=== PATIENT | female | born 1990 | race American Indian/Alaskan Native ===

== ENCOUNTER 2019-09-15 15:57 | Emergency (ER) | payer OTHER ==
--- NOTE | 2019-09-15 17:14 | Emergency Department Report ---
Blank Doc - Documentation Documentation: 29-year-old female that presents with right lower abdominal pain with n/v. This initial assessment/diagnostic orders/clinical plan/treatment(s) is/are subject to change based on patient's health status, clinical progression and re- assessment by fellow clinical providers in the ED. Further treatment and workup at subsequent clinical providers discretion. Patient/guardians urged not to elope from the ED as their condition may be serious if not clinically assessed and managed. Initial orders include: 1- Patient sent to [facility] for further evaluation and treatment 2- UA 3- labs
[2019-09-15 18:39] LABS: Basophils # (Auto) 0.1 K/mm3 (0.0-0.1); Basophils % (Auto) 0.5 % (0.0-1.8); Eosinophils # (Auto) 0.3 K/mm3 (0.0-0.4); Eosinophils % (Auto) 3.2 % (0.0-4.3); Hematocrit 38.7 % (30.3-42.9); Hemoglobin 12.7 gm/dl (10.1-14.3); Lymphocytes # (Auto) 2.4 K/mm3 (1.2-5.4); Mean Corpuscular HGB Conc 33 % (30-34); Mean Corpuscular Volume 83 fl (79-97); Monocytes # (Auto) 0.8 K/mm3 (0.0-0.8); Monocytes % (Auto) 8.1 % (0.0-7.3); Platelet Count 397 K/mm3 (140-440); Red Blood Count 4.65 M/mm3 (3.65-5.03); Red Cell Distribution Width 15.8 % (13.2-15.2)
[2019-09-15 18:59] LABS: Alanine Aminotransferase 13 units/L (7-56); Albumin 4.3 g/dL (3.9-5); BUN/Creatinine Ratio 16; Blood Urea Nitrogen 11 mg/dL (7-17); Calcium 9.1 mg/dL (8.4-10.2); Hemolysis Index 2
[2019-09-15] MEDS ORDERED: MORPHINE IV ONE (21:12)
[2019-09-15] MEDS ORDERED: ZOFRAN IV ONE (21:12)
[2019-09-15] MEDS ORDERED: NACL 0.9% 1000 ML 1,000 ML IV ONE ×2 (21:12→23:05)
[2019-09-15 21:14] LABS: Bilirubin,Urine NEG (Negative); Blood,Urine NEG (Negative); Color,Urine Straw (Yellow); Mucus,Urine FEW /HPF; Protein,Urine <15 mg/dL mg/dL (Negative); Urobilinogen,Urine < 2.0 mg/dL (<2.0)
[2019-09-15] MEDS ORDERED: TYLENOL PO ONE (21:14)
--- NOTE | 2019-09-15 21:14 | Emergency Department Report ---
<MEGHANN NANCE - Last Filed: 09/15/19 23:13> ED Abdominal Pain HPI - General Chief Complaint: Abdominal Pain Stated Complaint: LOWER ABD PAIN Time Seen by Provider: 09/15/19 17:13 Source: patient, RN notes reviewed Mode of arrival: Ambulatory Limitations: No Limitations - History of Present Illness Initial Comments: This is a pleasant 29-year-old female who is not known to this provider previously. 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 She believes that she has a past history of cholecystectomy. She presents to the ER with a complaint of sharp right lower quadrant pain. This pain has been present for the past few hours to 1 day. The pain is in the right lower quadrant. It increases with palpation and decreases with rest. There is positive nausea. There is no vomiting. There is no dysuria. There is no vaginal discharge. The patient reports that her Crohn's disease is currently in remission. She reports that she is not taking any immunomodulating therapy at this time. She reports the pain does not feel like her typical Crohn's pain. MD Complaint: abdominal pain -: Gradual Location: RLQ Severity scale (0 -10): 6 Quality: aching Consistency: other Improves With: other Worsens With: other - Related Data Previous Rx's Medication Instructions Recorded Last Taken Type Acetaminophen [Non-Aspirin Extra 500 mg PO Q6HR PRN #30 tablet 09/15/19 Unknown Rx Strength] Ibuprofen [Motrin] 600 mg PO Q8H PRN #30 tablet 09/15/19 Unknown Rx Metoclopramide [Reglan] 10 mg PO QID PRN #30 tablet 09/15/19 Unknown Rx Allergies Allergy/AdvReac Type Severity Reaction Status Date / Time No Known Allergies Allergy Verified 09/15/19 19:38 ED Review of Systems Constitutional: denies: malaise, weakness Eyes: denies: eye discharge ENT: denies: epistaxis Respiratory: denies: cough Cardiovascular: denies: chest pain Genitourinary: denies: dysuria Musculoskeletal: denies: myalgia Skin: denies: lesions Neurological: denies: weakness Hematological/Lymphatic: denies: easy bleeding ED Past Medical Hx - Past Medical History Previous Medical History?: Yes Additional medical history: Chron's - Surgical History Past Surgical History?: Yes Additional Surgical History: Partial colectomy from Chron's - Social History Smoking Status: Current Every Day Smoker Substance Use Type: Alcohol - Medications Home Medications: Home Medications Medication Instructions Recorded Confirmed Last Taken Type Acetaminophen [Non-Aspirin Extra 500 mg PO Q6HR PRN #30 tablet 09/15/19 Unknown Rx Strength] Ibuprofen [Motrin] 600 mg PO Q8H PRN #30 tablet 09/15/19 Unknown Rx Metoclopramide [Reglan] 10 mg PO QID PRN #30 tablet 09/15/19 Unknown Rx ED Physical Exam - General Limitations: No Limitations General appearance: alert, in no apparent distress - Head Head exam: Present: atraumatic, normocephalic - Eye Eye exam: Present: normal appearance, EOMI. Absent: nystagmus - ENT ENT exam: Present: normal exam, normal orophraynx, mucous membranes moist, normal external ear exam - Neck Neck exam: Present: normal inspection, full ROM. Absent: tenderness, meningismus - Respiratory Respiratory exam: Present: normal lung sounds bilaterally. Absent: respiratory distress - Cardiovascular Cardiovascular Exam: Present: normal rhythm, tachycardia, normal heart sounds. Absent: systolic murmur, diastolic murmur, rubs, gallop - GI/Abdominal GI/Abdominal exam: Present: soft, tenderness, other (there is a negative Rovsing sign. There is negative Lynn sign. There is right lower quadrant tenderness.). Absent: distended, guarding, rebound, rigid, pulsatile mass - External exam: Present: normal external exam Speculum exam: Present: normal speculum exam. Absent: cervical discharge, vaginal bleeding Bi-manual exam: Present: normal bi-manual exam, other (chaperoned by MABEL Flowers). Absent: cervical motion tendernes, adnexal tenderness, adnexal mass - Extremities Exam Extremities exam: Present: normal inspection, full ROM, other (2+ pulses noted in the bilateral upper, lower extremities. There is no long bone tenderness. Musculoskeletal compartments are soft. The pelvis is stable.). Absent: pedal e zay, calf tenderness - Back Exam Back exam: Present: normal inspection, full ROM. Absent: tenderness, CVA tenderness (R), CVA tenderness (L), paraspinal tenderness, vertebral tenderness - Neurological Exam Neurological exam: Present: alert, oriented X3, other (there is no facial droop. The tongue is midline. Extraocular movements are intact bilaterally. Patient speaking in full complete sentences. Shoulder shrug is intact bilaterally. Hearing is grossly intact bilaterally. Visual acuity intact to finger counting and color perception at a close distance. 5/5 strength 4 extremities. Sensation intact to light touch in 4 extremities.) - Psychiatric Psychiatric exam: Present: normal affect, normal mood - Skin Skin exam: Present: warm, dry, intact, normal color. Absent: rash ED Course - Reevaluation(s) Reevaluation #1: 09/15/19 23:06 Differential diagnosis, including not limited to: Ovarian cyst, ovarian torsion, appendicitis, renal colic, enteritis, colitis, diverticulitis, Crohn's disease flare Assessment and plan: 29-year-old female with right lower quadrant pain. She is afebrile with resolved tachycardia. Has lower abdominal tenderness. Her gyne cologic examination is benign. Clinically doubt pelvic inflammatory disease. CT scan abdomen and pelvis suggests ovarian cyst and possible enteritis. Nonspecific adenopathy is noted. Her pain is much improved with morphine. I clinically doubt ovarian torsion, however, duplex ultrasound is pending at this time. Discussed this with the patient, who verbalizes understanding. She endorses that she does not require additional pain medicine at this time. 09/15/19 23:16 ED Medical Decision Making - Lab Data Result diagrams: 09/15/19 18:16 09/15/19 18:16 Vital Signs 09/15/19 09/15/19 09/15/19 16:35 20:47 21:43 Temperature 99.4 F 98.3 F Pulse Rate 112 H 66 Respiratory 18 12 16 Rate Blood Pressure 132/80 Blood Pressure 123/84 [Right] O2 Sat by Pulse 99 100 Oximetry 09/15/19 22:13 Temperature Pulse Rate Respiratory 16 Rate Blood Pressure Blood Pressure [Right] O2 Sat by Pulse Oximetry Lab Results 09/15/19 09/15/19 09/15/19 Range/Units 18:16 18:16 18:16 WBC 10.4 (4.5-11.0) K/mm3 RBC 4.65 (3.65-5.03) M/mm3 Hgb 12.7 (10.1-14.3) gm/dl Hct 38.7 (30.3-42.9) % MCV 83 (79-97) fl MCH 27 L (28-32) pg MCHC 33 (30-34) % RDW 15.8 H (13.2-15.2) % Plt Count 397 (140-440) K/mm3 Lymph % (Auto) 23.0 (13.4-35.0) % [place] % (Auto) 8.1 H (0.0-7.3) % Eos % (Auto) 3.2 (0.0-4.3) % Baso % (Auto) 0.5 (0.0-1.8) % Lymph # 2.4 (1.2-5.4) K/mm3 [place] # 0.8 (0.0-0.8) K/mm3 Eos # 0.3 (0.0-0.4) K/mm3 Baso # 0.1 (0.0-0.1) K/mm3 Seg Neutrophils % 65.2 (40.0-70.0) % Seg Neutrophils # 6.8 (1.8-7.7) K/mm3 Sodium 138 (137-145) mmol/L Potassium 4.1 (3.6-5.0) mmol/L Chloride 101.2 (98-107) mmol/L Carbon Dioxide 24 (22-30) mmol/L Anion Gap 17 mmol/L BUN 11 (7-17) mg/dL Creatinine 0.7 (0.7-1.2) mg/dL Estimated GFR > 60 ml/min BUN/Creatinine Ratio 16 % Glucose 87 (65-100) mg/dL Calcium 9.1 (8.4-10.2) mg/dL Magnesium (1.7-2.3) mg/dL Total Bilirubin 0.20 (0.1-1.2) mg/dL AST 14 (5-40) units/L ALT 13 (7-56) units/L Alkaline Phosphatase 67 (35-129) units/L Total Creatine Kinase (30-135) units/L Total Protein 7.8 (6.3-8.2) g/dL Albumin 4.3 (3.9-5) g/dL Albumin/Globulin Ratio 1.2 % Lipase 33 (13-60) units/L HCG, Qual Negative (Negative) Urine Color (Yellow) Urine Turbidity (Clear) Urine pH (5.0-7.0) Ur Specific [place] (1.003-1.030) Urine Protein (Negative) mg/dL Urine Glucose (UA) (Negative) mg/dL Urine Ketones (Negative) mg/dL Urine Blood (Negative) Urine Nitrite (Negative) Urine Bilirubin (Negative) Urine Urobilinogen (<2.0) mg/dL Ur Leukocyte Esterase (Negative) Urine WBC (Auto) (0.0-6.0) /HPF Urine RBC (Auto) (0.0-6.0) /HPF U Epithel Cells (Auto) (0-13.0) /HPF Urine Mucus /HPF 09/15/19 09/15/19 Range/Units 20:49 21:17 WBC (4.5-11.0) K/mm3 RBC (3.65-5.03) M/mm3 Hgb (10.1-14.3) gm/dl Hct (30.3-42.9) % MCV (79-97) fl MCH (28-32) pg MCHC (30-34) % RDW (13.2-15.2) % Plt Count (140-440) K/mm3 Lymph % (Auto) (13.4-35.0) % [place] % (Auto) (0.0-7.3) % Eos % (Auto) (0.0-4.3) % Baso % (Auto) (0.0-1.8) % Lymph # (1.2-5.4) K/mm3 [place] # (0.0-0.8) K/mm3 Eos # (0.0-0.4) K/mm3 Baso # (0.0-0.1) K/mm3 Seg Neutrophils % (40.0-70.0) % Seg Neutrophils # (1.8-7.7) K/mm3 Sodium (137-145) mmol/L Potassium (3.6-5.0) mmol/L Chloride (98-107) mmol/L Carbon Dioxide (22-30) mmol/L Anion Gap mmol/L BUN (7-17) mg/dL Creatinine (0.7-1.2) mg/dL Estimated GFR ml/min BUN/Creatinine Ratio % Glucose (65-100) mg/dL Calcium (8.4-10.2) mg/dL Magnesium 2.00 (1.7-2.3) mg/dL Total Bilirubin (0.1-1.2) mg/dL AST (5-40) units/L ALT (7-56) units/L Alkaline Phosphatase (35-129) units/L Total Creatine Kinase 248 H (30-135) units/L Total Protein (6.3-8.2) g/dL Albumin (3.9-5) g/dL Albumin/Globulin Ratio % Lipase (13-60) units/L HCG, Qual (Negative) Urine Color Straw (Yellow) Urine Turbidity Clear (Clear) Urine pH 5.0 (5.0-7.0) Ur Specific [place] 1.013 (1.003-1.030) Urine Protein <15 mg/dl (Negative) mg/dL Urine Glucose (UA) Neg (Negative) mg/dL Urine Ketones Neg (Negative) mg/dL Urine Blood Neg (Negative) Urine Nitrite Neg (Negative) Urine Bilirubin Neg (Negative) Urine Urobilinogen < 2.0 (<2.0) mg/dL Ur Leukocyte Esterase Neg (Negative) Urine WBC (Auto) 1.0 (0.0-6.0) /HPF Urine RBC (Auto) < 1.0 (0.0-6.0) /HPF U Epithel Cells (Auto) 2.0 (0-13.0) /HPF Urine Mucus Few /HPF - Radiology Data Radiology results: report reviewed, image reviewed Print Report Referring Physician: MEGHANN NANCE Patient Name: JULIO CUEVAS Date of : 1990 Sex: Female Report Date: 2019-09-15 Report Status: [place] [address] Cat Scan Report Signed Patient: JULIO CUEVAS MR#: [id number] : 1990 Acct:[id number] Age/Sex: 29 / F ADM Date: 09/15/19 Loc: ED Attending Dr: Ordering Physician: MEGHANN NANCE MD Date of Service: 09/15/19 Procedure(s): CT abdomen pelvis w con Accession Number(s): [id number] cc: MEGHANN NANCE MD CT abdomen pelvis w con INDICATION: Right lower quadrant pain. TECHNIQUE: All CT scans at this location are performed using the following dose modulation technique: Automated exposure control. Helical slices were obtained through the abdomen and pelvis following the administration of 100 cc of Omnipaque 300 COMPARISON: None available. FINDINGS: Abdomen: The lung bases are clear. The liver, spleen, pancreas, adrenal glands, and kidneys are unremarkable. The aorta is normal in diameter. There is no obstruction, inflammation, or free air. There is mild wall thickening of small bowel in the right quadrant changes of prior surgery involving cecum are noted. Pelvis: There is no inflammatory change. There is a 5.3 cm right ovarian cystic lesion measuring above water density. There is no adenopathy. There are no abnormal fluid collections. On review of bone windows, no acute osseous abnormalities are seen. IMPRESSION: 1. There is a large cystic lesion in the right ovary. This likely represents a hemorrhagic cyst. At a minimum, a short-term follow-up ultrasound of the pelvis should be obtained in the next 4-6 weeks a different phase of patient's menstru al cycle to ensure that this resolves. 2. There is some mild wall thickening in loops of small bowel in the right lower quadrant possibly representing an enteritis. There is no obstruction. There is no free air. 3. There are nonspecific nodes in the right lower quadrant mesentery largest measures ap proximately 13 mm in the short axis. Signer Name: Joel Castaneda MD Signed: 09/15/2019 10:45 PM Workstation Name: [id number] Transcribed By: SS Dictated By: Joel Castaneda MD Electronically Authenticated By: Joel Castaneda MD Signed Date/Time: 09/15/19 3542 ED Disposition Clinical Impression: Ovarian cyst Qualifiers: Laterality: right Qualified Code(s): N83.201 - Unspecified ovarian cyst, right side Disposition: DC-01 TO HOME OR SELFCARE Is pt being admited?: No Does the pt Need Aspirin: No Condition: Stable Instructions: Ovarian Cyst (ED) Additional Instructions: Cultures were sent today, and results will be available in the next 3-5 days. Have your primary care doctor contact the medical records department to obtain culture results. Advance diet as tolerated, drink plenty of fluids, avoid consumption of heavy and/or spicy foods. However, the patient should follow-up with a food service utility worker in 4-6 weeks for her ovarian cyst, and have a repeat ultrasound performed to ensure resolution. In addition, CT scan of abdomen and pelvis demonstrated incidental nonemergent findings, which should be followed up by her primary care doctor within the next 4-6 weeks. Please have your primary care doctor contact the medical records department to obtain CT scan results, to ensure prompt follow-up. Return to emergency room right away with projectile vomiting, change in mental status, confusion, inability to tolerate liquid feeds, new, worsened or different symptoms not present on initial emergency room evaluation. Take the prescribed pain medication, nausea medication as needed and/or directed. Prescriptions: Ibuprofen [Motrin] 600 mg PO Q8H PRN #30 tablet PRN Reason: Pain Acetaminophen [Non-Aspirin Extra Strength] 500 mg PO Q6HR PRN #30 tablet PRN Reason: Pain , Severe (7-10) Metoclopramide [Reglan] 10 mg PO QID PRN #30 tablet PRN Reason: Nausea Referrals: [facility] [Provider Group] - as needed [facility] [Provider Group] - as needed <GEOFFREY SAMPSON - Last Filed: 09/16/19 03:44> ED Review of Systems ROS: Stated complaint: LOWER ABD PAIN Other details as noted in HPI ED Course Vital Signs 09/15/19 09/15/19 09/15/19 16:35 20:47 21:43 Temperature 99.4 F 98.3 F Pulse Rate 112 H 66 Respiratory 18 12 16 Rate Blood Pressure 132/80 Blood Pressure 123/84 [Right] O2 Sat by Pulse 99 100 Oximetry 09/15/19 09/15/19 09/16/19 22:13 22:43 01:06 Temperature Pulse Rate Respiratory 16 16 16 Rate Blood Pressure Blood Pressure [Right] O2 Sat by Pulse Oximetry 09/16/19 09/16/19 01:10 02:06 Temperature 98.2 F Pulse Rate 96 H Respiratory 16 16 Rate Blood Pressure Blood Pressure 145/91 [Right] O2 Sat by Pulse 100 Oximetry ED Medical Decision Making - Lab Data Result diagrams: 09/15/19 18:16 09/15/19 18:16 - Radiology Data Radiology results: report reviewed Ultrasound revealed large hemorrhagic cyst 5 cm Critical care attestation.: If time is entered above; I have spent that time in minutes in the direct care of this critically ill patient, excluding procedure time. ED Disposition Is pt being admited?: No Does the pt Need Aspirin: No
[2019-09-15 21:17] LABS: RBC,Urine < 1.0 /HPF (0.0-6.0)
--- NOTE | 2019-09-15 22:49 | Cat Scan Report ---
CT abdomen pelvis w con INDICATION: Right lower quadrant pain. TECHNIQUE: All CT scans at this location are performed using the following dose modulation technique: Automated exposure control. Helical slices were obtained through the abdomen and pelvis following the administr ation of 100 cc of Omnipaque 300 COMPARISON: None available. FINDINGS: Abdomen: The lung bases are clear. The liver, spleen, pancreas, adrenal glands, and kidneys are unrem arkable. The aorta is normal in diameter. There is no obstruction, inflammation, or free air. There is mild wall thickening of small bowel in the right quadrant changes of prior surgery involving cecum are noted. Pelvis: There is no inflammatory change. There is a 5.3 cm right ovarian cystic lesion measuring abov e water density. There is no adenopathy. There are no abnormal fluid collections. On review of bone windows, no acute osseous abnormalities are seen. IMPRESSION: 1. There is a large cystic lesion in the right ovary. This likely represents a hemorrhagic cyst. At a minimum, a short-term follow-up ultrasound of the pelvis should be obtained in the next 4-6 weeks a different phase of patient's menstrual cycle to ensure that this resolves. 2. There is some mild wall thickening in loops of small bowel in the right lower quadrant possibly re presenting an enteritis. There is no obstruction. There is no free air. 3. There are nonspecific nodes in the right lower quadrant mesentery largest measures approximately 1 3 mm in the short axis. Signer Name: Joel Castaneda MD Signed: 09/15/2019 10:45 PM Workstation Name: [id number]
[2019-09-16] MEDS ORDERED: NORCO 5/325 PO ONE (01:01)
--- NOTE | 2019-09-16 03:27 | Ultrasound Report ---
Pelvic ultrasound with Doppler INDICATION: Right lower quadrant pain FINDINGS: There is a large complex cyst arising from the right ovary that measures 5 cm in diameter. No internal Doppler flow appreciated. The left ovary is normal. The uterus is normal. No free pelvic fluid IMPRESSION: Large complex cyst arising from the right ovary measuring about 5 cm in diameter, most co nsistent consistent with a large hemorrhagic cyst. One to two-week ultrasound follow-up is suggested to ensure resolution/stability. Signer Name: Frederci Esqueda MD Signed: 09/16/2019 3:22 AM Workstation Name: [id number]
[2019-09-16] MEDS ORDERED: PERCOCET 5/325 PO ONE (03:47)
[2019-09-16 04:01] VITALS: BP 122/74
== END 2019-09-16 04:00 | disposition home or self-care (01) ==
LOC: ED 15:57
DX: N83.201 Unspecified ovarian cyst, right side (principal); F17.200 Nicotine dependence, unspecified, uncomplicated; R11.2 Nausea with vomiting, unspecified; Z90.49 Acquired absence of other specified parts of digestive tract; Z79.899 Other long term (current) drug therapy
CPT/HCPCS: 36415; 74177; 76830; 80053; 81001; 82550; 83690; 83735; 84703; 85025; 87210; 87591; 93975; 96361; 96374; 96375; 99285; J2270; J2405; J7030; Q9967

== ENCOUNTER 2019-12-22 09:40 | Emergency (ER) | payer OTHER ==
[2019-12-22 09:45] VITALS: BP 119/79
== END 2019-12-22 11:34 | disposition left against medical advice (07) ==
LOC: ED 09:40
DX: M54.5 Low back pain (principal); Z79.899 Other long term (current) drug therapy